=== PATIENT | female | born 1960 | race African-American/Black ===

== ENCOUNTER 2016-05-02 20:19 | Emergency (ER) | payer BC, OTHER ==
[~2016-05-02 20:19] MED LIST: HYDR-971 PO
[2016-05-02 20:50] VITALS: BP 169/93
[2016-05-02] MEDS ORDERED: HYDROCHLOROTHIAZIDE 25 MG TABLET PO SCH (20:56)
--- NOTE | 2016-05-02 20:57 | PHYS DOC ---
Past Medical History Past Medical History: Cancer, Depression, Diabetes-Type II, Other Additional Past Medical Histor: crones, hx of fractured ribs Past Surgical History: Hysterectomy, Other Additional Past Surgical Histo: L. knee Alcohol Use: None Drug Use: None Adult General Chief Complaint Chief Complaint: ITCHING HPI HPI Patient is a 56 year old female presents emergency department stating that she' s had these rashes on bilateral arms legs chest area for at least the last 2 weeks. She states that she's been trying Benadryl [id number] as well as Aveeno baths Aveeno lotions and Benadryl lotions without relief. Patient states that she has had increased itching with no drainage coming from the sites. She denies any shortness of breath or difficulty breathing. She denies any new lotions she denies any new clothing or any new soaps or laundry detergents. Patient also noted to have an elevated pressure here in the emergency department. Shunt denies headache, she denies any blurred vision. She denies any shortness of air difficulty breathing she denies any chest pain. She denies any lower extremity edema. Review of Systems Review of Systems Constitutional: Denies fever or chills [] Eyes: Denies change in visual acuity, redness, or eye pain [] HENT: Denies nasal congestion or sore throat [] Respiratory: Denies cough or shortness of breath [] Cardiovascular: No additional information not addressed in HPI [] GI: Denies abdominal pain, nausea, vomiting, bloody stools or diarrhea [] : Denies dysuria or hematuria [] Musculoskeletal: Denies back pain or joint pain [] Integument: rash Neurologic: Denies headache, focal weakness or sensory changes [] Endocrine: Denies polyuria or polydipsia [] Current Medications Current Medications Current Medications Medications (Trade) Dose Ordered Sig/Zi Start Time Stop Time Status Last Admin Dose Admin Diphenhydramine HCl (Benadryl) 25 mg 1X ONCE 05/02/16 21:00 05/02/16 21:01 DC 05/02/16 21:09 25 MG Hydrochlorothiazide (Hydrodiuril) 25 mg DAILY 05/02/16 20:56 Prednisone (Prednisone) 40 mg 1X ONCE 05/02/16 21:00 05/02/16 21:01 DC 05/02/16 21:09 40 MG Allergies Allergies Allergies Coded Allergies Type Severity Reaction Last Updated Verified No Known Drug Allergies 02/05/16 No Physical Exam Physical Exam Constitutional: Well developed, well nourished, no acute distress, non-toxic appearance. [] HENT: Normocephalic, atraumatic, bilateral external ears normal, oropharynx moist, no oral exudates, nose normal. [] Eyes: PERRLA, EOMI, conjunctiva normal, no discharge. [] Neck: Normal range of motion, no tenderness, supple, no stridor. [] Cardiovascular:Heart rate regular rhythm, no murmur [] Lungs & Thorax: Bilateral breath sounds clear to auscultation [] Skin: Warm, dry, no erythema, she was noted to have pinpoint rashes throughout upper extremity and on the chest area. No drainage or discharge noted from the sites. Back: No tenderness Extremities: No tenderness, no cyanosis, no clubbing, ROM intact, no edema. [] Neurologic: Alert and oriented X 3, normal motor function, normal sensory function, no focal deficits noted. [] Psychologic: Affect normal, judgement normal, mood normal. [] Current Patient Data Vital Signs Vital Signs Date Time Temp Pulse Resp B/P Pulse Ox O2 Delivery O2 Flow Rate FiO2 05/02/16 20:30 97.9 75 20 98 Room Air 97.9 EKG EKG [] Radiology/Procedures Radiology/Procedures [] Course & Med Decision Making Course & Med Decision Making Pertinent Labs and Imaging studies reviewed. (See chart for details) She was blood pressure was retaken prior to providing her with hydrochlorothiazide. His medication was held at the current time. Patient was provided with Benadryl and prednisone here in the emergency department. She'll be discharged home with recommendations to monitor her blood pressure, follow- up with her primary care physician if they blood pressure is elevated. She was also provided with signs and symptoms to return back to the emergency department. She'll be provided prescribed prednisone at home area I we'll also provide her with recommendations to take Benadryl 25 mg every 4-6 hours. She was instructed this medication will cause drowsiness do not take any be alert and oriented. [] Dragon Disclaimer Dragon Disclaimer This electronic medical record was generated, in whole or in part, using a voice recognition dictation system. Departure Departure Impression: Primary Impression: Contact dermatitis Disposition: HOME, SELF-CARE Condition: STABLE Referrals: NO PCP (PCP) Patient Instructions: Contact Dermatitis, [id number] Additional Instructions: Activity as tolerated. Monitor your blood pressure at home and follow-up with your primary care physician in the next 3-5 days. Benadryl 25 mg every 4-6 hours. This medication will cause drowsiness do not take any be alert and oriented. Prednisone as prescribed. Keep the areas clean and dry. Keep the areas also cool as this will prevent further irritation as well as redness appearing worse. Follow-up primary care physician in the next 5-7 days. Return back to emergency prior signs symptoms of become worse. Scripts Prednisone 20 Mg [id number] Mg PO DAILY #10 TAB Prov:LINWOOD DE LEON NP 05/02/16 LINWOOD DE LEON NP May 02, 2016 20:57
[2016-05-02] MEDS ORDERED: DIPHENHYDRAMINE HCL 25 MG CAPSULE PO ONE (21:00)
[2016-05-02] MEDS ORDERED: PREDNISONE 20 MG TABLET PO ONE (21:00)
[2016-05-02] MEDS ORDERED: PRED20TA PO (21:12)
== END 2016-05-02 21:24 | disposition home or self-care (01) ==
LOC: ER 20:19
DX: L25.9 Unspecified contact dermatitis, unspecified cause (principal); F32.9 Major depressive disorder, single episode, unspecified; E11.9 Type 2 diabetes mellitus without complications; R03.0 Elevated blood-pressure reading, without diagnosis of hypertension
CPT/HCPCS: 99283; J7512; Q0163

== ENCOUNTER 2016-05-09 21:12 | Emergency (ER) | payer OTHER ==
[~2016-05-09] VITALS: Ht 165.1 cm; Wt 74.8 kg
[~2016-05-09 21:12] MED LIST changes: +PRED20TA PO
[2016-05-09 21:55] VITALS: BP 158/70
--- NOTE | 2016-05-09 22:08 | PHYS DOC ---
Past Medical History Past Medical History: Cancer, Depression, Diabetes-Type II, Other Additional Past Medical Histor: crones, hx of fractured ribs Past Surgical History: Hysterectomy, Other Additional Past Surgical Histo: L. knee Alcohol Use: None Drug Use: None Adult General Chief Complaint Chief Complaint: ALLERGIC REACTION HPI HPI Patient is a 56 year old female presents emergency room today with complaint of ongoing rash for greater than 1 week that had improved after initial visit here 1 week ago and began to worsen again today. Patient states that she did not follow up with Dr. she was seen here one week ago. She states that she took Benadryl this morning for the rash. She denies facial swelling or difficulty breathing. She reports increase oral secretions without difficulty swallowing or changes in her voice. Patient denies any changes to her personal hygiene products or laundry detergents. She is over here helping take care of a family member that she typically lives in [place] receives her care at [facility] [place]. She denies any previous history of angioedema or required intubation secondary to allergic reactions. Review of Systems Review of Systems Constitutional: Denies fever or chills [] Eyes: Denies change in visual acuity, redness, or eye pain [] HENT: Denies nasal congestion or sore throat [] Respiratory: Denies cough or shortness of breath [] Cardiovascular: No additional information not addressed in HPI [] GI: Denies abdominal pain, nausea, vomiting, bloody stools or diarrhea [] : Denies dysuria or hematuria [] Musculoskeletal: Denies back pain or joint pain [] Integument: Denies rash or skin lesions [] Neurologic: Denies headache, focal weakness or sensory changes [] Endocrine: Denies polyuria or polydipsia [] Current Medications Current Medications Current Medications Medications (Trade) Dose Ordered Sig/Zi Start Time Stop Time Status Last Admin Dose Admin Dexamethasone Sodium Phosphate (Decadron) 10 mg 1X ONCE 05/09/16 22:30 05/09/16 22:31 Diphenhydramine HCl (Benadryl) 50 mg 1X ONCE 05/09/16 22:30 05/09/16 22:31 Famotidine (Pepcid) 20 mg 1X ONCE 05/09/16 22:30 05/09/16 22:31 Allergies Allergies Allergies Coded Allergies Type Severity Reaction Last Updated Verified No Known Drug Allergies 02/05/16 No Physical Exam Physical Exam Constitutional: Well developed, well nourished, no acute distress, non-toxic appearance. [] HENT: Normocephalic, atraumatic, bilateral external ears normal, oropharynx moist, no oral exudates, nose normal. There is no angioedema. Posterior oropharynx is normal in appearance without any swelling. Eyes: PERRLA, EOMI, conjunctiva normal, no discharge. [] Neck: Normal range of motion, no tenderness, supple, no stridor. Cardiovascular:Heart rate regular rhythm, no murmur [] Lungs & Thorax: There is no respiratory distress or respiratory fatigue. There is no posturing or sensory muscle use. Lungs are clear to auscultation bilaterally. Abdomen: Bowel sounds normal, soft, no tenderness, no masses, no pulsatile masses. [] Skin: Patient has hives in various sizes scattered throughout her trunk, anterior chest and neck and upper extremities. There is no coalescence of these lesions. Back: No tenderness, no CVA tenderness. [] Extremities: No tenderness, no cyanosis, no clubbing, ROM intact, no edema. [] Neurologic: Alert and oriented X 3, normal motor function, normal sensory function, no focal deficits noted. [] Psychologic: Affect normal, judgement normal, mood normal. [] Current Patient Data Vital Signs Vital Signs Date Time Temp Pulse Resp B/P Pulse Ox O2 Delivery O2 Flow Rate FiO2 05/09/16 21:55 98.5 99 18 99 Room Air 98.5 EKG EKG [] Radiology/Procedures Radiology/Procedures [] Course & Med Decision Making Course & Med Decision Making Pertinent Labs and Imaging studies reviewed. (See chart for details) [] Dragon Disclaimer Dragon Disclaimer This electronic medical record was generated, in whole or in part, using a voice recognition dictation system. Departure Departure Impression: Primary Impression: Hives Disposition: 01 HOME, SELF-CARE Condition: STABLE Referrals: NO PCP (PCP) Patient Instructions: Hives, [id number] Additional Instructions: 1. Take the medication as prescribed. You will need to be on a longer course of steroids since the hives came back after your initial dose of steroids. Be sure to take 25-50 mg of Benadryl every 8 hours. Do not take the daily allergy medication (Zyrtec) until completing your course of Benadryl and Pepcid. 2. Avoid hot showers or hot baths as this can make the hives worse. 3. Review the discharge instructions for self-care and reasons to return to the emergency department. 4. Follow-up with a primary care doctor within the next 5-7 days. Scripts Cetirizine Hcl (Zyrtec)10 Mg Tablet1 Tab PO DAILY allergies and hives #30 TAB Ref 2 Prov:BERE KUMAR 05/09/16 Prednisone 10 Mg [id number] Mg PO UD PREDNISONE TAPER #39 TAB Ref 0 Take 3 tablets by mouth twice a day for 3 days, then take 2 tablets by mouth twice a day for 3 days, then take 1 tablet by mouth twice a day for 3 days, then take 1 tablet by mouth daily x 3 days, then stop. Prov:BERE KUMAR 05/09/16 Famotidine (Pepcid)20 Mg [id number] Mg PO BID hives 5 Days Prov:BERE KUMAR 05/09/16 BERE KUMAR May 09, 2016 22:08
[2016-05-09] MEDS ORDERED: FAMO-63 PO (22:23)
[2016-05-09] MEDS ORDERED: PRED-220 PO (22:23)
[2016-05-09] MEDS ORDERED: CETI10TA22 PO (22:23)
[2016-05-09] MEDS ORDERED: DIPHENHYDRAMINE 50 MG/ML VIAL IM ONE (22:30)
[2016-05-09] MEDS ORDERED: FAMOTIDINE 20 MG TABLET. PO ONE (22:30)
[2016-05-09] MEDS ORDERED: DEXAMETHASONE SOD PHOS 4 MG/ML VIAL IM ONE (22:30)
== END 2016-05-09 22:35 | disposition home or self-care (01) ==
LOC: ER 21:12
DX: L50.9 Urticaria, unspecified (principal); F32.9 Major depressive disorder, single episode, unspecified; E11.9 Type 2 diabetes mellitus without complications; Z90.710 Acquired absence of both cervix and uterus
CPT/HCPCS: 96372; 99284; J1100; J1200

== ENCOUNTER 2016-05-20 16:07 | Emergency (ER) | payer OTHER ==
[~2016-05-20] VITALS: Ht 165.1 cm; Wt 72.6 kg
[~2016-05-20 16:07] MED LIST changes: +CETI10TA22 PO; +FAMO-63 PO; +PRED-220 PO
[2016-05-20 17:25] VITALS: BP 137/75
--- NOTE | 2016-05-20 17:52 | PHYS DOC ---
Past Medical History Past Medical History: Cancer, Depression, Diabetes-Type II, Other Additional Past Medical Histor: crohn's, hx of fractured ribs Past Surgical History: Hysterectomy, Other Additional Past Surgical Histo: L. knee Alcohol Use: None Drug Use: None Adult General Chief Complaint Chief Complaint: SKIN RASH/ABSCESS [facility] HPI Patient is a 56 year old female who presents emergency room today with complaint of hives have returned. Patient was seen here earlier this year with a similar situation. She has not followed up to see her primary care doctor or shoe treer. Eyes any new personal hygiene or laundry products. She denies throat swelling, facial swelling or difficulty breathing. Review of Systems Review of Systems Constitutional: Denies fever or chills [] Eyes: Denies change in visual acuity, redness, or eye pain [] HENT: Denies nasal congestion or sore throat [] Respiratory: Denies cough or shortness of breath [] Cardiovascular: No additional information not addressed in HPI [] GI: Denies abdominal pain, nausea, vomiting, bloody stools or diarrhea [] : Denies dysuria or hematuria [] Musculoskeletal: Denies back pain or joint pain [] Integument: Denies rash or skin lesions [] Neurologic: Denies headache, focal weakness or sensory changes [] Endocrine: Denies polyuria or polydipsia [] Current Medications Current Medications Current Medications Medications (Trade) Dose Ordered Sig/Zi Start Time Stop Time Status Last Admin Dose Admin Diphenhydramine HCl (Benadryl) 25 mg 1X ONCE 05/20/16 18:00 05/20/16 18:01 05/20/16 17:47 25 MG Famotidine (Pepcid) 20 mg 1X ONCE 05/20/16 18:00 05/20/16 18:01 05/20/16 17:47 20 MG Prednisone (Prednisone) 50 mg 1X ONCE 05/20/16 18:00 05/20/16 18:01 05/20/16 17:47 50 MG Allergies Allergies Allergies Coded Allergies Type Severity Reaction Last Updated Verified No Known Drug Allergies 02/05/16 No Physical Exam Physical Exam Constitutional: Well developed, well nourished, no acute distress, non-toxic appearance. [] HENT: Normocephalic, atraumatic, bilateral external ears normal, oropharynx moist, no oral exudates, nose normal. There is no angioedema. Eyes: PERRLA, EOMI, conjunctiva normal, no discharge. [] Neck: Normal range of motion, no tenderness, supple, no stridor. [] Cardiovascular:Heart rate regular rhythm, no murmur [] Lungs & Thorax: Bilateral breath sounds clear to auscultation [] Abdomen: Bowel sounds normal, soft, no tenderness, no masses, no pulsatile masses. [] Skin: Scattered urticarial patches to patient's anterior posterior trunk as well as her upper extremities. There is some coalescence of these patches. There is no pattern to this distribution. Back: No tenderness, no CVA tenderness. [] Extremities: No tenderness, no cyanosis, no clubbing, ROM intact, no edema. [] Neurologic: Alert and oriented X 3, normal motor function, normal sensory function, no focal deficits noted. [] Psychologic: Affect normal, judgement normal, mood normal. [] Current Patient Data Vital Signs Vital Signs Date Time Temp Pulse Resp B/P Pulse Ox O2 Delivery O2 Flow Rate FiO2 05/20/16 17:25 98.5 70 16 100 Room Air 98.5 EKG EKG [] Radiology/Procedures Radiology/Procedures [] Course & Med Decision Making Course & Med Decision Making Pertinent Labs and Imaging studies reviewed. (See chart for details) [] Dragon Disclaimer Dragon Disclaimer This electronic medical record was generated, in whole or in part, using a voice recognition dictation system. Departure Departure Impression: Primary Impression: Hives Disposition: 01 HOME, SELF-CARE Condition: STABLE Referrals: NO PCP (PCP) Patient Instructions: Hives, [id number] Additional Instructions: 1. Take the medication as prescribed. 2. Review the discharge instructions provided for self-care and reasons to return to the emergency department. 3. Call [facility] allergy clinic at [phone] to schedule an appointment to see an shoe treer. Scripts Hydroxyzine Hcl 25 Mg Tablet1 Tab PO TID hives #21 TAB Prov:BERE KUMAR 05/20/16 Famotidine (Pepcid)20 Mg [id number] Mg PO BID 7 Days Prov:BERE KUMAR 05/20/16 Prednisone 10 Mg [id number] Mg PO UD PREDNISONE TAPER #39 TAB Ref 0 Take 3 tablets by mouth twice a day for 3 days, then take 2 tablets by mouth twice a day for 3 days, then take 1 tablet by mouth twice a day for 3 days, then take 1 tablet by mouth daily x 3 days, then stop. Prov:BERE KUMAR 05/20/16 BERE KUMAR May 20, 2016 17:52
[2016-05-20] MEDS ORDERED: PRED-220 PO (17:54)
[2016-05-20] MEDS ORDERED: FAMO-63 PO (17:54)
[2016-05-20] MEDS ORDERED: HYDR25TA PO (17:54)
[2016-05-20] MEDS ORDERED: DIPHENHYDRAMINE HCL 25 MG CAPSULE PO ONE (18:00)
[2016-05-20] MEDS ORDERED: PREDNISONE 10 MG TABLET PO ONE (18:00)
[2016-05-20] MEDS ORDERED: FAMOTIDINE 20 MG TABLET. PO ONE (18:00)
== END 2016-05-20 18:07 | disposition home or self-care (01) ==
LOC: ER 16:07
DX: L50.9 Urticaria, unspecified (principal); E11.9 Type 2 diabetes mellitus without complications; K50.90 Crohn's disease, unspecified, without complications
CPT/HCPCS: 99284; J7512; Q0163

== ENCOUNTER 2018-01-11 02:54 | Emergency (ER) | payer OTHER ==
[~2018-01-11] VITALS: Ht 160 cm; Wt 90.7 kg
[~2018-01-11 02:54] MED LIST changes: +HYDR-3164 PO; -HYDR-971 PO; +HYDR25TA PO
[2018-01-11] MEDS ORDERED: ONDANSETRON PF 4 MG/2 ML VIAL. IV ONE (03:45)
[2018-01-11] MEDS ORDERED: fentaNYL PF VIAL 100 MCG/2 ML VIAL IV ONE (03:45)
[2018-01-11] MEDS ORDERED: IV NORMAL SALINE 1000ML BAG 1,000 ML IV ONE (03:45)
[2018-01-11 03:50] LABS: BASO % 0 % (0-3); EOS # 0.1 x10^3/uL (0.0-0.7); EOS % 0 % (0-3); HEMATOCRIT 39.4 % (36.0-47.0); HEMOGLOBIN 13.2 g/dL (12.0-15.5); LYMPH # 2.1 x10^3/uL (1.0-4.8); LYMPH % 13 % (24-48); MEAN CORPUSCULAR HEMOGLOBIN 28 pg (25-35); MEAN CORPUSCULAR HGB CONC 33 g/dL (31-37); MEAN CORPUSCULAR VOLUME 84 fL (79-100); MONO # 0.5 x10^3/uL (0.0-1.1); MONO % 3 % (0-9); NEUT # 13.5 x10^3uL (1.8-7.7); NEUT % 83 % (31-73); PLATELET COUNT 111 x10^3/uL (140-400); RED CELL DISTRIBUTION WIDTH 15.2 % (11.5-14.5); WHITE BLOOD COUNT 16.3 x10^3/uL (4.0-11.0)
[2018-01-11 03:53] LABS: BILIRUBIN,URINE SMALL (NEG); CLARITY,URINE CLOUDY; COLOR,URINE AMBER; NITRITE,URINE NEGATIVE (NEG); PROTEIN,URINE 100 mg/dL (NEG-TRACE)
[2018-01-11 04:08] LABS: PROTHROMBIN TIME PATIENT 13.6 SEC (11.7-14.0)
--- NOTE | 2018-01-11 04:27 | RAD ---
PQRS Compliance Statement: One or more of the following individualized dose reduction techniques were utilized for this examination: 1. Automated exposure control 2. Adjustment of the mA and/or kV according to patient size 3. Use of iterative reconstruction technique CT abdomen/pelvis without contrast 01/11/2018 3:39 AM INDICATION: Left lower quadrant and left upper quadrant abdominal pain. COMPARISON: None available TECHNIQUE: Multiple axial CT images of the abdomen and pelvis were obtained without intravenous contrast. Coronal and sagittal reformats are provided. FINDINGS: Lung bases are clear. Heart size is within normal limits. Evaluation of the solid abdominal viscera is limited by lack of intravenous contrast. Liver is normal in appearance. Spleen is nonenlarged. Adrenal glands appear normal. No peripancreatic inflammation. Gallbladder is normal in appearance. Abdominal aorta is normal in course and caliber. No pathologically enlarged lymph nodes are identified in the abdomen and pelvis. There is no free fluid or free intraperitoneal air. There is a 4 mm calculus in the distal left ureter immediately proximal to the left ureterovesicular junction. There is mild to moderate associated hydroureteronephrosis with perinephric and periureteral fat stranding. No additional calculi are identified. Right kidney is normal in appearance. Small and large bowel are normal in caliber. No evidence for bowel obstruction. The appendix is not definitively seen, however no pericecal inflammatory changes are identified. There is a small hiatal hernia. Urinary bladder is within normal limits given degree of distention. No suspicious pelvic masses are identified. No suspicious osseous abnormality is identified. IMPRESSION: 1. There is a distal left ureteral calculus with associated mild to moderate hydroureteronephrosis with periureteral and perinephric fat stranding. Correlate with urinalysis to assess for superimposed infection. 2. Small hiatal hernia. Electronically signed by: Sherri Araujo MD (01/11/2018 4:24 AM) [id number]
[2018-01-11 04:31] LABS: BACTERIA,URINE MANY /HPF (0-FEW); RBC,URINE TNTC /HPF (0-2); SQUAMOUS EPITHELIAL CELL,UR MANY /LPF
[2018-01-11] MEDS ORDERED: METOCLOPRAMIDE HCL 10 MG/2 ML VIAL. IV ONE (04:45)
[2018-01-11] MEDS ORDERED: KETOROLAC 15 MG/ML VIAL. IV ONE (04:45)
[2018-01-11] MEDS ORDERED: TAMSULOSIN 0.4 MG CAP.ER.24H. PO ONE (04:45)
--- NOTE | 2018-01-11 06:19 | PHYS DOC ---
Past Medical History Past Medical History: Cancer, Depression, Diabetes-Type II, Other Additional Past Medical Histor: crohn's, hx of fractured ribs Past Surgical History: Hysterectomy, Other Additional Past Surgical Histo: L. knee Alcohol Use: None Drug Use: None Adult General Chief Complaint Chief Complaint: ABDOMINAL PAIN HPI HPI 58 y/o female presents with left lower abdominal pain with radiation to vagina which started this evening. Denies known trauma. Reports pain sharp and intermittent in nature. Reports associated nausea and vomiting. Denies dysuria or hematuria. Reports history of Crohn's disease, but reports symptoms not similar to prior episodes. Denies fever/chills. Denies vaginal bleeding or discharge. Review of Systems Review of Systems Constitutional: Denies fever or chills [] Eyes: Denies change in visual acuity, redness, or eye pain [] HENT: Denies nasal congestion or sore throat [] Respiratory: Denies cough or shortness of breath [] Cardiovascular: Denies chest pain or palpitations GI: Reports abdominal pain, nausea, and vomiting; denies diarrhea [] : Denies dysuria or hematuria [] Musculoskeletal: Reports some flank pain; denies joint pain [] Integument: Denies rash or skin lesions [] Neurologic: Denies headache, focal weakness or sensory changes [] Complete systems were reviewed and found to be within normal limits, except as documented in this note. Current Medications Current Medications Current Medications Medications (Trade) Dose Ordered Sig/Zi Start Time Stop Time Status Last Admin Dose Admin Ceftriaxone Sodium 50 ml @ 100 mls/hr 1X ONCE 01/11/18 04:45 01/11/18 05:14 DC 01/11/18 04:58 100 MLS/HR Fentanyl Citrate (Fentanyl 2ml Vial) 25 mcg 1X ONCE 01/11/18 03:45 01/11/18 03:46 DC 01/11/18 03:36 25 MCG Ketorolac Tromethamine (Toradol 15mg Vial) 15 mg 1X ONCE 01/11/18 04:45 01/11/18 04:46 DC 01/11/18 04:57 15 MG Metoclopramide HCl (Reglan Vial) 10 mg 1X ONCE 01/11/18 04:45 01/11/18 04:46 DC 01/11/18 04:57 10 MG Ondansetron HCl (Zofran) 4 mg 1X ONCE 01/11/18 03:45 01/11/18 03:46 DC 01/11/18 03:36 4 MG Potassium Chloride (Klor-Con) 40 meq 1X ONCE 01/11/18 07:00 01/11/18 07:07 DC 01/11/18 07:13 40 MEQ Sodium Chloride 1,000 ml @ 1,000 mls/hr 1X ONCE 01/11/18 03:45 01/11/18 04:44 DC 01/11/18 03:35 1,000 MLS/HR Tamsulosin HCl (Flomax) 0.4 mg 1X ONCE 01/11/18 04:45 01/11/18 04:46 DC 01/11/18 04:57 0.4 MG Allergies Allergies Allergies Coded Allergies Type Severity Reaction Last Updated Verified No Known Drug Allergies 02/05/16 No Physical Exam Physical Exam Constitutional: Well developed, well nourished, no acute distress, uncomfortable in appearance HENT: Normocephalic, atraumatic, oropharynx moist, Eyes: Conjunctiva normal, no discharge. [] Neck: Normal range of motion, no tenderness, supple Cardiovascular: Heart rate regular rhythm, no murmur [] Lungs & Thorax: Bilateral breath sounds clear to auscultation [] Abdomen: Soft, LLQ mildly tender to palpation Skin: Warm, dry, no erythema, no rash. [] Back: No tenderness, no CVA tenderness. [] Extremities: No tenderness, ROM intact Neurologic: Alert and oriented X 3, normal motor function, normal sensory function, no focal deficits noted. [] Psychologic: Affect normal, judgement normal, mood normal. [] Current Patient Data Vital Signs Vital Signs Date Time Temp Pulse Resp B/P (MAP) Pulse Ox O2 Delivery O2 Flow Rate FiO2 01/11/18 07:06 99.2 60 16 158/72 (100) 98 Room Air 99.2 Lab Values Laboratory Tests Test 01/11/18 03:05 01/11/18 03:35 01/11/18 06:20 Urine Collection Type Unknown Urine Color Mel Urine Clarity Cloudy Urine pH 5.0 Urine Specific [place] >=1.030 Urine Protein 100 mg/dL (NEG-TRACE) Urine Glucose (UA) Negative mg/dL (NEG) Urine Ketones (Stick) Negative mg/dL (NEG) Urine Blood Large (NEG) Urine Nitrite Negative (NEG) Urine Bilirubin Small (NEG) Urine Urobilinogen Dipstick 1.0 mg/dL (0.2 mg/dL) Urine Leukocyte Esterase Small (NEG) Urine RBC Tntc /HPF (0-2) Urine WBC 11-20 /HPF (0-4) Urine Squamous Epithelial Cells Many /LPF Urine Bacteria Many /HPF (0-FEW) White Blood Count 16.3 x10^3/uL (4.0-11.0) H Red Blood Count 4.70 x10^6/uL (3.50-5.40) Hemoglobin 13.2 g/dL (12.0-15.5) Hematocrit 39.4 % (36.0-47.0) Mean Corpuscular Volume 84 fL (79-100) Mean Corpuscular Hemoglobin 28 pg (25-35) Mean Corpuscular Hemoglobin Concent 33 g/dL (31-37) Red Cell Distribution Width 15.2 % (11.5-14.5) H Platelet Count 111 x10^3/uL (140-400) L Neutrophils (%) (Auto) 83 % (31-73) H Lymphocytes (%) (Auto) 13 % (24-48) L Monocytes (%) (Auto) 3 % (0-9) Eosinophils (%) (Auto) 0 % (0-3) Basophils (%) (Auto) 0 % (0-3) Neutrophils # (Auto) 13.5 x10^3uL (1.8-7.7) H Lymphocytes # (Auto) 2.1 x10^3/uL (1.0-4.8) Monocytes # (Auto) 0.5 x10^3/uL (0.0-1.1) Eosinophils # (Auto) 0.1 x10^3/uL (0.0-0.7) Basophils # (Auto) 0.0 x10^3/uL (0.0-0.2) Prothrombin Time 13.6 SEC (11.7-14.0) Prothrombin Time INR 1.1 (0.8-1.1) PTT 23 SEC (24-38) L Lactic Acid Level 1.9 mmol/L (0.4-2.0) Sodium Level 144 mmol/L (136-145) Potassium Level 3.1 mmol/L (3.5-5.1) L Chloride Level 104 mmol/L (98-107) Carbon Dioxide Level 32 mmol/L (21-32) Anion Gap 8 (6-14) Blood Urea Nitrogen 19 mg/dL (7-20) Creatinine 1.2 mg/dL (0.6-1.0) H Estimated GFR (Cockcroft-Gault) 55.4 BUN/Creatinine Ratio 16 (6-20) Glucose Level 121 mg/dL (70-99) H Calcium Level 9.1 mg/dL (8.5-10.1) Magnesium Level 1.7 mg/dL (1.8-2.4) L Total Bilirubin 0.2 mg/dL (0.2-1.0) Aspartate Amino Transferase (AST) 14 U/L (15-37) L Alanine Aminotransferase (ALT) 18 U/L (14-59) Alkaline Phosphatase 66 U/L (46-116) Creatine Kinase 101 U/L (26-192) Creatine Kinase MB (Mass) 0.7 ng/mL (0.0-3.6) Creatine Kinase MB Relative Index 0.7 % (0-4) Troponin I Quantitative < 0.017 ng/mL (0.000-0.055) Total Protein 6.4 g/dL (6.4-8.2) Albumin 3.1 g/dL (3.4-5.0) L Albumin/Globulin Ratio 0.9 (1.0-1.7) L Lipase 109 U/L (73-393) Laboratory Tests 01/11/18 03:35 Laboratory Tests 01/11/18 06:20 EKG EKG @0331 Sinus bradycardia at 51bpm, NO ST elevation, nonspecific t wave inversion. Radiology/Procedures Radiology/Procedures PROCEDURE: CT ABDOMEN PELVIS WO CONTRAST PQRS Compliance Statement: One or more of the following individualized dose reduction techniques were utilized for this examination: 1. Automated exposure control 2. Adjustment of the mA and/or kV according to patient size 3. Use of iterative reconstruction technique CT abdomen/pelvis without contrast 01/11/2018 3:39 AM INDICATION: Left lower quadrant and left upper quadrant abdominal pain. COMPARISON: None available TECHNIQUE: Multiple axial CT images of the abdomen and pelvis were obtained without intravenous contrast. Coronal and sagittal reformats are provided. FINDINGS: Lung bases are clear. Heart size is within normal limits. Evaluation of the solid abdominal viscera is limited by lack of intravenous contrast. Liver is normal in appearance. Spleen is nonenlarged. Adrenal glands appear normal. No peripancreatic inflammation. Gallbladder is normal in appearance. Abdominal aorta is normal in course and caliber. No pathologically enlarged lymph nodes are identified in the abdomen and pelvis. There is no free fluid or free intraperitoneal air. There is a 4 mm calculus in the distal left ureter immediately proximal to the left ureterovesicular junction. There is mild to moderate associated hydroureteronephrosis with perinephric and periureteral fat stranding. No additional calculi are identified. Right kidney is normal in appearance. Small and large bowel are normal in caliber. No evidence for bowel obstruction. The appendix is not definitively seen, however no pericecal inflammatory changes are identified. There is a small hiatal hernia. Urinary bladder is within normal limits given degree of distention. No suspicious pelvic masses are identified. No suspicious osseous abnormality is identified. IMPRESSION: 1. There is a distal left ureteral calculus with associated mild to moderate hydroureteronephrosis with periureteral and perinephric fat stranding. Correlate with urinalysis to assess for superimposed infection. 2. Small hiatal hernia. Electronically signed by: Sherri Araujo MD (01/11/2018 4:24 AM) [facility] Course & Med Decision Making Course & Med Decision Making Pertinent Labs and Imaging studies reviewed. (See chart for details) Patient presents with report of LLQ pain with associated N/V. Reports radiation to groin. Symptomatic treatment provided. Labs obtained and posted to chart. UA with hematuria and signs of infection vs contamination. Hypokalemia addressed. CT abd/pelvis with findings consistent for obstructing ureteral calculi 4mm. Flomax provided. Patient stable for discharge home with outpatient follow-up with PCP/Urologist. Decision to hold antibiotics given likely contamination. Will await UCX results. Urologist referral provided. Discussed findings and plan with patient, who acknowledges understanding and agreement. Dragon Disclaimer Dragon Disclaimer This electronic medical record was generated, in whole or in part, using a voice recognition dictation system. Departure Departure Impression: Primary Impression: Kidney stone Additional Impression: Hypokalemia Disposition: 01 HOME, SELF-CARE Condition: STABLE Referrals: NO PCP (PCP) DILAN GUAJARDO MD Patient Instructions: Hypokalemia-Brief, Kidney Stones, [id number], Potassium Content of Foods Scripts Tamsulosin Hcl (FLOMAX) 0.4 Mg Cap.er.24h 1 CAP PO DAILY, #14 CAP 0 Refills Prov: ANATOLY BALBUENA DO 01/11/18 Ondansetron (ZOFRAN ODT) 4 Mg Tab.rapdis 4 MG PO BID PRN for NAUSEA/VOMITING, #14 TAB Prov: ANATOLY BALBUENA DO 01/11/18 Hydrocodone/Apap 5-325 (NORCO 5-325 TABLET) 1 Each Tablet 1 TAB PO PRN Q6HRS PRN for PAIN, #14 TAB 0 Refills Prov: ANATOLY BALBUENA DO 01/11/18 Problem Qualifiers ANATOLY BALBUENA DO Jan 11, 2018 06:18
[2018-01-11 06:38] LABS: CALCIUM 9.1 mg/dL (8.5-10.1); CREATININE 1.2 mg/dL (0.6-1.0); GFR 55.4; POTASSIUM 3.1 mmol/L (3.5-5.1)
[2018-01-11 06:44] LABS: ALBUMIN 3.1 g/dL (3.4-5.0); ALBUMIN/GLOBULIN RATIO 0.9 (1.0-1.7); MAGNESIUM 1.7 mg/dL (1.8-2.4); TOTAL BILIRUBIN 0.2 mg/dL (0.2-1.0); TOTAL PROTEIN 6.4 g/dL (6.4-8.2)
[2018-01-11] MEDS ORDERED: POTASSIUM CHLORIDE 20 MEQ TABLET.ER. PO ONE (07:00)
[2018-01-11] MEDS ORDERED: HYDR-3164 PO (07:04)
[2018-01-11] MEDS ORDERED: TAMS0.4C97 PO (07:04)
[2018-01-11] MEDS ORDERED: ONDA4TAB10 PO (07:04)
[2018-01-11 07:06] VITALS: BP 158/72
--- NOTE | 2018-01-11 07:39 | EKG ---
[facility] [address] [place] [address] Test Date: 2018-01-11 Test Time: 03:31:53 Pat Name: ARMAND RICHTER Department: Room: Gender: Female [employer] Engineer: : 1960 Requested By: ANATOLY BALBUENA Order Number: [id number] Reading MD: Jose Rush MD Measurements Intervals [place] Rate: 51 P: RI: QRS: 31 QRSD: 94 T: 35 QT: 452 QTc: 419 Interpretive Statements SR Electronically Signed On 01-12-2018 14:28:45 [employer]ICENSED [employer] E[employer] by Jose Rush MD
== END 2018-01-11 07:31 | disposition home or self-care (01) ==
LOC: ER 02:54
DX: N13.2 Hydronephrosis with renal and ureteral calculous obstruction (principal); N30.01 Acute cystitis with hematuria; K44.9 Diaphragmatic hernia without obstruction or gangrene; E87.6 Hypokalemia; E11.9 Type 2 diabetes mellitus without complications; K50.90 Crohn's disease, unspecified, without complications; Z90.710 Acquired absence of both cervix and uterus
CPT/HCPCS: 36415; 74176; 80053; 81001; 82553; 83605; 83690; 83735; 84484; 85025; 85610; 85730; 93005; 96365; 96375; 99285; J0690; J1885; J2405; J2765; J3010; J7030